=== PATIENT | female | born 1965 | race Caucasian/White ===

== ENCOUNTER 2017-09-26 11:41 | Day surgery (SDC) | payer OTHER, BC ==
[2017-09-26] MEDS ORDERED: LIDOCAINE 2% (SDV) 5 ML INJ (12:20)
[2017-09-26] MEDS ORDERED: MIDAZOLAM 1 MG/ML 2 ML INJ (12:20)
[2017-09-26] MEDS ORDERED: PROPOFOL 20 ML (12:20)
== END 2017-09-26 14:18 | disposition home or self-care (01) ==
LOC: GIL 11:41
DX: K21.0 Gastro-esophageal reflux disease with esophagitis (principal); K44.9 Diaphragmatic hernia without obstruction or gangrene; K29.70 Gastritis, unspecified, without bleeding
CPT/HCPCS: 43239; 84703; 87081

== ENCOUNTER 2018-10-08 10:29 | Day surgery (SDC) | payer OTHER ==
[2018-10-08] MEDS ORDERED: MIDAZOLAM 1 MG/ML 2 ML INJ (12:04)
[2018-10-08] MEDS ORDERED: LIDOCAINE 2% (SDV) 5 ML INJ (12:04)
[2018-10-08] MEDS ORDERED: PROPOFOL 40 ML (12:04)
[2018-10-08] MEDS ORDERED: FENTAnyl 50 MCG/ML VIAL (12:04)
[2018-10-08] MEDS ORDERED: ONDANSETRON 4 MG INJ IV (13:30)
[2018-10-08] MEDS ORDERED: OXYCODONE/ACETAMINOPHEN (5/325) TAB PO ×2 (13:30)
== END 2018-10-08 14:03 | disposition home or self-care (01) ==
LOC: GIL 10:29
DX: Z12.11 Encounter for screening for malignant neoplasm of colon (principal); D12.2 Benign neoplasm of ascending colon
CPT/HCPCS: 45380; 88305